=== PATIENT | female | born 1975 | race Caucasian/White ===

== ENCOUNTER → 2019-04-07 17:58 | Outpatient (CLI) | payer OTHER, SELFPAY ==
--- NOTE | ~2019-04-07 | MM_ITS ---
EXAMINATION: MM screening willy BI w ric HISTORY: Screening mammogram TECHNIQUE: Craniocaudal and mediolateral oblique 3-D tomosynthesis images were obtained and synthetic 2-D images were generated. CAD analysis was submitted and interpreted. COMPARISON: Comparison to multiple prior studies sequentially, with oldest reviewed study dated 11/06. BREAST PARENCHYMAL COMPOSITION: The breasts are heterogeneously dense, which may obscure small masses . FINDINGS: There is no evidence of suspicious mass, calcification, or architectural distortion to sugg est malignancy in either breast. There has been no suspicious interval change. IMPRESSION: 1. No mammographic evidence of malignancy. 2. Recommend routine screening mammography in one year. BI-RADS Category 1: Negative Reviewed, dictated and finalized at location A. [facility]
== END ==
DX: Z12.31 Encounter for screening mammogram for malignant neoplasm of breast (principal)
CPT/HCPCS: 77063; 77067

== ENCOUNTER 2020-05-31 17:02 | Outpatient (CLI) | payer OTHER, SELFPAY ==
--- NOTE | ~2020-05-31 | MM_ITS ---
EXAMINATION: MM screening willy BI w ric HISTORY: Screening TECHNIQUE: Craniocaudal and mediolateral oblique 3-D tomosynthesis images were obtained and synthetic 2-D images were generated. CAD analysis was submitted and interpreted. COMPARISON: Comparison to multiple prior studies sequentially, with oldest reviewed study dated 11/06. BREAST PARENCHYMAL COMPOSITION: The breasts are heterogeneously dense, which may obscure small masses . FINDINGS: There is no evidence of suspicious mass, calcification, or architectural distortion to sugg est malignancy in either breast. There has been no suspicious interval change. IMPRESSION: 1. No mammographic evidence of malignancy. 2. Recommend routine screening mammography in one year. BI-RADS Category 1: Negative Reviewed, dictated and finalized at location A.
== END 2020-05-31 17:03 | disposition home or self-care (01) ==
LOC: ANHIMG 17:09
PROVIDERS: PCP Internal Medicine
DX: Z12.31 Encounter for screening mammogram for malignant neoplasm of breast (principal)
CPT/HCPCS: 77063; 77067

== ENCOUNTER → 2021-06-02 17:53 | Outpatient (CLI) | payer BC, SELFPAY ==
--- NOTE | ~2021-06-02 | MM_ITS ---
EXAMINATION: MM screening willy BI w ric HISTORY: Screening TECHNIQUE: Craniocaudal and mediolateral oblique 3-D tomosynthesis images were obtained and synthetic 2-D images were generated. CAD analysis was submitted and interpreted. COMPARISON: Comparison to multiple prior studies sequentially, with oldest reviewed study dated 11/06. BREAST PARENCHYMAL COMPOSITION: The breasts are heterogeneously dense, which may obscure small masses . FINDINGS: There is no evidence of suspicious mass, calcification, or architectural distortion to sugg est malignancy in either breast. There has been no suspicious interval change. IMPRESSION: 1. No mammographic evidence of malignancy. 2. Recommend routine screening mammography in one year. BI-RADS Category 1: Negative Reviewed, dictated and finalized at location A.
== END ==
DX: Z12.31 Encounter for screening mammogram for malignant neoplasm of breast (principal)
CPT/HCPCS: 77063; 77067

== ENCOUNTER 2022-05-20 21:24 | Emergency (ER) | payer BC, SELFPAY ==
--- NOTE | ~2022-05-20 | XR_ITS ---
Clinical Indication: Chest pressure PA and lateral views of the chest: Comparison: 03/05/2017 Findings: The lungs are clear, without evidence of focal consolidation or pleural effusion. Oh mild p rominence of the central pulmonary arterial structures. Cardiac silhouette unremarkable. Bones and so ft tissues are unremarkable. Impression: Somewhat prominent central pulmonary arterial structures. Correlate for pulmonary artery hypertension . Clear lungs. Reviewed, dictated and finalized at location . Impression: Somewhat prominent central pulmonary arterial structures. Correlate for pulmona ry artery hypertension. Clear lungs.
--- NOTE | 2022-05-20 21:25 | ECG_ITS ---
Measurements Intervals [place] Rate: 67 P: 65 MA: 171 QRS: 65 QRSD: 81 T: 57 QT: 388 QTc: 411 Interpretive Statements SINUS RHYTHM NORMAL ECG NO PREVIOUS ECG AVAILABLE FOR COMPARISON Electronically Signed On 05-21-2022 16:54:12 CDT by Gonzalo Smith M.D.
[2022-05-20 21:27] VITALS: BP 146/85; PULSE 72; RESP 15; TEMP 36.6; O2SAT 100
[2022-05-20 21:51] VITALS: PULSE 66
[2022-05-20 21:55] LABS: Basophils Absolute Auto 0.1 K/mm3 (0.0-0.1); Basophils Percent Auto 1.3 % (0.2-1.2); Eosinophils Absolute Auto 0.2 K/mm3 (0-0.3); Eosinophils Percent Auto 3.4 % (0-4.4); Hematocrit 36.2 % (37.0-47.0); Hemoglobin 12.2 g/dL (12.0-15.0); Immature Granulocyte Absolute 0.01 K/mm3 (0.00-0.031); Immature Granulocyte Percent A 0.2 % (0-0.5); Lymphocytes Absolute Auto 2.91 K/mm3 (0.9-3.2); Lymphocytes Percent Auto 48.8 % (18.3-44.2); Mean Corpuscular HGB Conc 33.7 g/dl (32-36); Mean Corpuscular Hemoglobin 30.9 pg (26-34); Mean Corpuscular Volume 91.6 fl (80-100); Mean Platelet Volume 9.5 fl (7.4-10.4); Monocytes Absolute Auto 0.8 K/mm3 (0.1-0.6); Monocytes Percent Auto 12.6 % (2.6-8.5); Neutrophils Percent Auto 33.7 % (45.5-73.1); Platelet Count Result 262 k/mm3 (150-375); Red Blood Count 3.95 M/mm3 (4.2-5.4); Red Cell Distribution Width 12.5 % (11.5-14.5)
[2022-05-20 22:06] LABS: Alanine Aminotransferase 23 U/L (6-35); Albumin Level 4.3 g/dL (3.5-5.1); Alkaline Phosphatase 62 U/L (38-126); Anion Gap 8 mmol/L (8-16); Aspartate Amino Transferase 30 U/L (14-36); Bilirubin,Total 0.5 mg/dL (0.2-1.3); Blood Urea Nitrogen 25 mg/dL (7-17); Calcium 9.4 mg/dL (8.4-10.2); Carbon Dioxide 28 mmol/L (22-30); Chloride 100 mmol/L (98-107); Estimated CRCL calculation 63 ml/min; Estimated Glomerular Filt Rate > 60; Glucose 102 mg/dL (65-110); Lipase 213 U/L (23-300); Potassium 3.9 mmol/L (3.4-5.0); Prothrombin Time 12.9 Seconds (11.1-14.7); Sodium 136 mmol/L (137-145)
--- NOTE | 2022-05-20 22:13 | ED.CHESTPAIN ---
HPI - Chest Pain General Chief Complaint: Chest Pain <Jada Latham PA-C - Last Filed: 05/20/22 23:22> Stated Complaint: chest pressure <Jada Latham PA-C - Last Filed: 05/20/22 23:22> Time Seen by Provider: 05/20/22 21:44 <Jada Latham PA-C - Last Filed: 05/20/22 23:22> History of Present Illness HPI narrative: 47 y/o F reports with history of hyperlipidemia reports for evaluation of left anterior chest tightness intermittently for 5 days. Patient reports the chest tightness comes on while she is laying down, lasts approximately 1 hour, and occurs multiple times a day. The pain does not radiate anywhere. Reports she has been very active and has gone to multiple runs since the symptoms started without exacerbation of pain. Patient denies cardiac history other than being told at one point that she needs to take antibiotics prior to going to the dentist, however she is unsure why. She is not followed by merchant patroller, however she is scheduled to see a merchant patroller in 3 months. She denies dyspnea, headaches, vision changes, focal numbness or weakness, syncope, dizziness, lower extremity edema, leg pain, palpitations cough, congestion, fever, body aches, chills. Reports she has felt lightheaded today. Denies history of VTE, recent hospitalizations or surgeries, history of cancer. She is currently taking oral contraceptives. <Jada Latham PA-C - Last Filed: 05/20/22 23:22> Related Data Home Medications: Home Medications Medication Instructions Recorded Confirmed drospirenone 3 mg-ethinyl 1 tablet PO DAILY 01/22/19 03/14/22 estradiol 0.03 mg tablet (Rosie (28)) valacyclovir 500 mg tablet 500 mg PO BID PRN Cold Sores 01/22/19 03/14/22 (Valtrex) cyclosporine 0.05 % eye drops 1 drop ophthalmic (eye) Q12H 03/24/19 03/14/22 (Restasis MultiDose) <Jada Latham PA-C - Last Filed: 05/20/22 23:22> Allergies/Adverse Reactions: Allergies Allergy/AdvReac Type Severity Reaction Status Date / Time No Known Allergies Allergy Mild Verified 05/20/22 21:25 <Jada Latham PA-C - Last Filed: 05/20/22 23:22> Review of Systems Review of Systems: CONSTITUTIONAL: Denies fever, chills EYES: Denies visual changes, redness, or discharge. ENT: Denies rhinorrhea, congestion, sore throat, or otalgia. CARDIOVASCULAR: See HPI RESPIRATORY: Denies cough or dyspnea. GASTROINTESTINAL: Denies abdominal pain, nausea, vomiting, or diarrhea. GENITOURINARY: Denies dysuria or hematuria. SKIN: Denies rash or itching. MUSCULOSKELETAL: Denies joint pain, or myalgia. NEUROLOGIC: Denies headache, numbness, dizziness, or weakness. PSYCHIATRIC: Denies anxiety or depression. <Jada Latham PA-C - Last Filed: 05/20/22 23:22> PMFSH Past Medical History Medical History: Medical History (Updated 05/21/22 @ 00:08 by Vladislav Brunner) Globus sensation <Jada Latham PA-C - Last Filed: 05/20/22 23:22> Family History Family History: Family History Mother Patient's mother is in good health Father Patient's father is in good health <Jada Latham PA-C - Last Filed: 05/20/22 23:22> Social History Social History: Social History Smoking status: Never smoker Second hand tobacco smoke exposure: No Alcohol intake: current Lack of Transportation: No Lack of Food: Never True Current Housing: I Have Housing Concerned About Future Housing: No Difficulty Paying Gas/Electric Bills: No Difficulty Paying for Meds: No Currently Unemployed: No Education: Bachelor's Degree Difficulty w/ Childcare or Family Care: No <Jada Latham PA-C - Last Filed: 05/20/22 23:22> Exam Narrative: GENERAL: Well-appearing, well-nourished, and in no acute distress. Patient resting comfortably in the exam bed. She is pleasant and conversationa
[2022-05-20 22:18] LABS: Troponin I < 0.012 ng/mL (0.000-0.034)
[2022-05-20] MEDS: ASPIRIN 81 MG CHEWABLE TABLET 324 MG PO (22:48)
[2022-05-20 22:50] VITALS: BP 116/77; PULSE 71; RESP 14; O2SAT 100
== END 2022-05-20 23:32 | disposition home or self-care (01) ==
PROVIDERS: Emergency Medicine; Emergency Provider Physician Assistant; PCP Internal Medicine
DX: R07.9 Chest pain, unspecified (principal)
CPT/HCPCS: 36415; 71046; 80053; 83690; 84484; 85025; 85610; 85730; 93005; 99284; A9270

== ENCOUNTER → 2022-07-12 16:57 | Outpatient (CLI) | payer BC, SELFPAY ==
--- NOTE | ~2022-07-12 | MM_ITS ---
EXAMINATION: MM screening willy BI w ric HISTORY: Screening mammogram TECHNIQUE: Craniocaudal and mediolateral oblique 3-D tomosynthesis images were obtained and synthetic 2-D images were generated. Bilateral rotated lateral CC views. CAD analysis was submitted and interp reted. COMPARISON: June 02, 2021, May 31, 2020, April 07, 2019 bilateral screening mammogram examinati ons BREAST PARENCHYMAL COMPOSITION: The breasts are heterogeneously dense, which may obscure small masses . FINDINGS: There is no evidence of suspicious mass, calcification, or architectural distortion to sugg est malignancy in either breast. There has been no suspicious interval change. IMPRESSION: 1. No mammographic evidence of malignancy. 2. Recommend routine screening mammography in one year. BI-RADS Category 1: Negative Reviewed, dictated and finalized at location A.
== END ==
PROVIDERS: PCP Internal Medicine
DX: Z12.31 Encounter for screening mammogram for malignant neoplasm of breast (principal)
CPT/HCPCS: 77063; 77067

== ENCOUNTER 2022-10-03 01:29 | Day surgery (SDC) | payer BC, SELFPAY ==
[2022-09-20 10:52] VITALS: BMI 25.0
--- NOTE | 2022-10-02 14:09 | WPDANESEPPF ---
Anes - Initial Pre Proc Eval Procedure: Operation Date: 10/03/22 10:45 Proposed Procedures p Screening Colonoscopy - Emile Mustafa MD Date/Time: 10/02/22 14:09 Surgeon: Emile Mustafa MD Pre Op Diagnosis: neoplasm screening Patient Data Age: 47 Gender: F Height: 1.55 m Weight: 60 kg Allergies Allergy/AdvReac Type Severity Reaction Status Date / Time No Known Allergies Allergy Mild Verified 10/03/22 09:33 Home Medications Medication Instructions Recorded Confirmed Type drospirenone 3 mg-ethinyl 1 tablet PO DAILY 01/22/19 10/03/22 History estradiol 0.03 mg tablet (Rosie (28)) valacyclovir 500 mg tablet 500 mg PO BID PRN Cold Sores 01/22/19 10/03/22 History (Valtrex) cyclosporine 0.05 % eye drops 1 drop ophthalmic (eye) Q12H 03/24/19 10/03/22 History (Restasis MultiDose) omega-3 acid ethyl esters 1 gram 1 cap PO DAILY #90 caps 06/18/22 10/03/22 Rx capsule (Lovaza) fenofibrate nanocrystallized 145 145 mg PO DAILY #90 tabs 06/26/22 10/03/22 Rx mg tablet Patient hx anesthesia problems: none Family hx anesthesia problems: none Results Review: All pre-operative results and documents have been reviewed as part of the pre-operative evaluation. [facility] Past Medical History Medical History (Updated 10/03/22 @ 10:25 by Emile Mustafa MD) Colon cancer screening Globus sensation Other hyperlipidemia Family History Family History Mother Patient's mother is in good health Father Patient's father is in good health Social History Social History Smoking status: Never smoker Second hand tobacco smoke exposure: No Alcohol intake: current Alcohol use details: socially Substance use: never Substance use type: does not use Lack of Transportation: No Lack of Food: Never True Current Housing: I Have Housing Concerned About Future Housing: No Difficulty Paying Gas/Electric Bills: No Difficulty Paying for Meds: No Currently Unemployed: No Education: Bachelor's Degree Difficulty w/ Childcare or Family Care: No Living arrangements: with family Spiritual care concerns: No Anes - Eval Final PreProcedure Day of Procedure 10/02/22 14:09 Patient weight: normal Heart: regular rate and rhythm Lungs: clear to auscultation and normal air movement Airway: Mallampati scale class II Neurological: alert and oriented Last oral intake: >/= 8 hours ASA classification: II Emergent: no Anesthetic plan: proceed Anesthesia type and monitoring: general GIVS and standard monitoring Results Review: All pre-operative results and documents have been reviewed as part of the pre-operative evaluation. Informed Consent: The patient's anesthetic plan and its attendant risks and benefits were discussed with the patient/family/POA. Questions were solicited and answers provided to the satisfaction of the patient/family/POA.
[2022-10-03 09:46] VITALS: BP 132/76; PULSE 65; RESP 16; TEMP 36.1; O2SAT 100; BMI 25.6
[2022-10-03] MEDS: LACTATED RINGERS 1,000 ML 150 ML IV CONT (09:56)
--- NOTE | 2022-10-03 10:24 | PM.HPGS ---
History of Present Illness History of Present Illness Consent: Risks, benefits, and alternatives have been discussed and questions answered. Patient agrees to proceed with procedure. Chief complaint: neoplasm screening Narrative: Kailey Fabian is a 47 year old female here for first screening colonoscopy Review of Systems Constitutional: Constitutional: Denies headache(s) and Denies weakness Eyes: Eyes: Denies blurry vision ENT: Reports Normal hearing present, Denies headache(s) and Denies neck pain Cardiovascular: Cardiovascular: Denies chest pain and Denies dyspnea Respiratory: Respiratory: Denies dyspnea Gastrointestinal: Gastrointestinal: Reports no additional gastrointestinal complaints Genitourinary: Genitourinary: Denies dysuria Musculoskeletal: Musculoskeletal: Denies neck pain Integumentary/Breasts: Skin/Breast: Denies dry skin Neurologic: Reports Normal hearing present, Denies headache(s) and Denies weakness Psychiatric: Psychiatric: Denies anxiety Endocrine: Endocrine: Denies change in body appearance Hematologic/Lymphatic: Hematologic/Lymphatic: Denies easy bleeding Allergic/Immunologic: Allergic/Immunologic: Denies urticaria PMFSH Past Medical History Medical History (Updated 10/03/22 @ 10:25 by Emile Mustafa MD) Colon cancer screening Globus sensation Other hyperlipidemia Family History Family History Mother Patient's mother is in good health Father Patient's father is in good health Social History Social History Smoking status: Never smoker Second hand tobacco smoke exposure: No Alcohol intake: current Alcohol use details: socially Substance use: never Substance use type: does not use Lack of Transportation: No Lack of Food: Never True Current Housing: I Have Housing Concerned About Future Housing: No Difficulty Paying Gas/Electric Bills: No Difficulty Paying for Meds: No Currently Unemployed: No Education: Bachelor's Degree Difficulty w/ Childcare or Family Care: No Living arrangements: with family Spiritual care concerns: No Meds Home Medications and Allergies Home Medications Medication Instructions Recorded Confirmed Type drospirenone 3 mg-ethinyl 1 tablet PO DAILY 01/22/19 10/03/22 History estradiol 0.03 mg tablet (Rosie (28)) valacyclovir 500 mg tablet 500 mg PO BID PRN Cold Sores 12/12/19 08/23/23 History (Valtrex) cyclosporine 0.05 % eye drops 1 drop ophthalmic (eye) Q12H 03/24/19 10/03/22 History (Restasis MultiDose) omega-3 acid ethyl esters 1 gram 1 cap PO DAILY #90 caps 06/18/22 10/03/22 Rx capsule (Lovaza) fenofibrate nanocrystallized 145 145 mg PO DAILY #90 tabs 06/26/22 10/03/22 Rx mg tablet Allergies Allergy/AdvReac Type Severity Reaction Status Date / Time No Known Allergies Allergy Mild Verified 10/03/22 09:33 Vital Signs Vital Signs - 24 hr 10/03/22 09:46 Temperature 97 F L Pulse Rate 65 Respiratory Rate 16 Blood Pressure 132/76 Pulse Oximetry 100 Oxygen Delivery Room Air Exam Const: General: comfortable and no acute distress HENMT: Face/Nose/Sinus: Normal nares present Eyes: General: appearance normal, both eyes and all related structures Neck: Neck: no JVD Resp: Auscultation: clear to auscultation bilaterally Cardio: Rate: regular rate Rhythm: regular rhythm GI: Inspection: non-distended GI Palp: Yes Soft to palpation Skin: General skin exam: normal color Neuro: General: gait normal Speech: normal speech Extrem: General: normal to inspection Psych: Mental Status: mental status grossly normal Assessment and Plan Assessment and plan (1) Colon cancer screening: Code(s): Z12.11 - Encounter for screening for malignant neoplasm of colon Status: Acute Assessment and Plan: colonoscop
[2022-10-03 10:47] VITALS: BP 80/53; PULSE 65; RESP 20; O2SAT 100
[2022-10-03 10:57] VITALS: BP 99/66; PULSE 57; RESP 22; O2SAT 100
[2022-10-03 11:07] VITALS: BP 119/81; PULSE 55; RESP 22; O2SAT 100
== END 2022-10-03 11:19 | disposition home or self-care (01) ==
PROVIDERS: PCP Internal Medicine; Visit Provider Internal Medicine Gastroenterology
PROC: 0DJD8ZZ Inspection of Lower Intestinal Tract, Via Natural or Artificial Opening Endoscopic (ICD-10-PCS; CPT 45378; principal; 2022-10-03 10:45)
DX: Z12.11 Encounter for screening for malignant neoplasm of colon (principal); E78.49 Other hyperlipidemia
CPT/HCPCS: 45378; J2704; J7120

== ENCOUNTER 2023-06-24 15:56 | Outpatient (CLI) | payer BC, SELFPAY ==
--- NOTE | ~2023-06-24 | US_ITS ---
EXAMINATION: US thyroid DATE: 06/24/2023 16:17 INDICATION: Nontoxic single thyroid nodule. TECHNIQUE: Multiple ultrasound images of the thyroid were obtained. COMPARISON: None. FINDINGS: The right thyroid lobe measures 4.8 x 1.4 x 1.4 cm. The left thyroid lobe measures 5.1 x 1.8 x 1.6 c m. In the left thyroid lobe, there is a 6 mm mixed cystic and solid, isoechoic, wider than tall nodu le with smooth margin without echogenic foci (TI-RADS TR2). In the left thyroid lobe, there is a 8 mm solid, hypoechoic, wider than tall nodule with smooth margins without echogenic foci (TR4). IMPRESSION: 1. Small thyroid nodules, likely not clinically significant. No follow-up is needed. Reviewed, dictated and finalized at location A. IMPRESSION: 1. Small thyroid nodules, likely not clinically significant. No follow-up is ne eded.
== END 2023-06-24 15:57 ==
PROVIDERS: PCP Physician Assistant; Visit Provider Physician Assistant
DX: E04.2 Nontoxic multinodular goiter (principal)
CPT/HCPCS: 76536

== ENCOUNTER 2023-09-16 13:48 | Outpatient (CLI) | payer BC, SELFPAY ==
--- NOTE | ~2023-09-16 | MM_ITS ---
EXAMINATION: MM screening willy BI w ric HISTORY: Screening TECHNIQUE: Craniocaudal and mediolateral oblique 3-D tomosynthesis images were obtained and synthetic 2-D images were generated. CAD analysis was submitted and interpreted. COMPARISON: Comparison to multiple prior studies sequentially, with oldest reviewed study dated 02/26. BREAST PARENCHYMAL COMPOSITION: Dense: The breasts are heterogeneously dense, which may obscure small masses FINDINGS: There is no evidence of suspicious mass, calcification, or architectural distortion to sugg est malignancy in either breast. There has been no suspicious interval change. IMPRESSION: 1. No mammographic evidence of malignancy. 2. Recommend routine screening mammography in one year. BI-RADS Category 1: Negative Reviewed, dictated and finalized at location B.
== END 2023-09-16 13:49 ==
DX: Z12.31 Encounter for screening mammogram for malignant neoplasm of breast (principal)
CPT/HCPCS: 77063; 77067

== ENCOUNTER 2023-12-09 16:01 | Emergency (ER) | payer BC, SELFPAY ==
[2023-12-09 16:12] VITALS: BP 119/66; PULSE 65; RESP 15; TEMP 36.2; O2SAT 100
--- NOTE | 2023-12-09 16:19 | ED_ITS ---
HPI - URI/Sore Throat General Chief Complaint: Upper Respiratory Infection Stated Complaint: Sinus Infection Symptoms Time Seen by Provider: 12/09/23 16:19 Source: patient Mode of arrival: ambulatory Limitations: no limitations History of Present Illness HPI Narrative: 48-year-old female presents with complaint of nasal congestion for 5 days. Hoarse voice for 3 days. Started coughing today. Cough is nonproductive. Afebrile. No chest pain or shortness of breath. Patient taking 1 Sudafed today and taking an maut-dul-tmanaug cough medicine to treat symptoms. All systems reviewed and negative except as noted above. Related Data Home Medications Medication Instructions Recorded Confirmed drospirenone 3 mg-ethinyl 1 tablet PO DAILY 01/22/19 12/09/23 estradiol 0.03 mg tablet (Rosie (28)) valacyclovir 500 mg tablet 500 mg PO BID PRN Cold Sores 01/22/19 12/09/23 (Valtrex) cyclosporine 0.05 % eye drops 1 drop ophthalmic (eye) Q12H 03/24/19 12/09/23 (Restasis MultiDose) Allergies Allergy/AdvReac Type Severity Reaction Status Date / Time No Known Allergies Allergy Mild Verified 12/09/23 16:18 Review of Systems Review of Systems: CONSTITUTIONAL: Denies fever, chills, or sweats. EYES: Denies visual changes, redness, or discharge. ENT: Reports rhinorrhea, congestion, hoarse voice, sore throat. Denies otalgia. CARDIOVASCULAR: Denies chest pain, palpitations, or edema. RESPIRATORY: Reports cough. Denies dyspnea. GASTROINTESTINAL: Denies abdominal pain, nausea, vomiting, or diarrhea. GENITOURINARY: Denies dysuria or hematuria. SKIN: Denies rash or itching. MUSCULOSKELETAL: Denies back pain, joint pain, or myalgia. NEUROLOGIC: Denies headache, numbness, or weakness. PSYCHIATRIC: Denies anxiety or depression. All other systems reviewed are negative, except as documented in HPI. [facility] Past Medical History Medical History Colon cancer screening Globus sensation Other hyperlipidemia Family History Family History Mother Patient's mother is in good health Father Patient's father is in good health Social History Social History Smoking status: Never smoker Second hand tobacco smoke exposure: No Alcohol intake: current Alcohol use details: socially Substance use: never Substance use type: does not use Lack of Transportation: No Lack of Food: Never True Current Housing: I Have Housing Concerned About Future Housing: No Difficulty Paying Gas/Electric Bills: No Difficulty Paying for Meds: No Currently Unemployed: No Education: Bachelor's Degree Difficulty w/ Childcare or Family Care: No Living arrangements: with family Spiritual care concerns: No Comments At time of signature, agree with nursing past medical, surgical, social and family history. There is no relevant family history pertinent to the presenting complaint. Exam Narrative: GENERAL: This is a well-nourished, well-developed patient, patient ill-appearing but in no acute distress HEAD: normocephalic, atraumatic. EYES: PERRL. Sclera clear/white. Vision is grossly intact. EARS: External ears normal, auditory canals clear and without drainage, TMs normal without perforation. Hearing grossly intact. NOSE: External nose normal with clear nasal drainage mild congestion THROAT: Mucous membranes moist, mild erythema, clear postnasal drainage, hoarse voice NECK: Neck supple, non-tender without lymphadenopathy, masses or thyromegaly. CARDIOVASCULAR: Regular rate and rhythm without murmurs, gallops, or rubs. RESPIRATORY: Clear to auscultation. Breath sounds equal bilaterally. No wheezes, rales, or rhonchi. SKIN: warm, Dry, intact with no suspicious lesions or rash, good texture and turgor. NEURO: awake, alert, and oriented to person, place and time. There were no obvious focal neurologic abnormalities. EXTREMITIES: No joint tenderness, effusion, or edema noted. Course Course Level of Care: Express Care Visit Vital Signs Vital signs: Vital Signs Temperature 36.2 C L 12/09/23 16:12 Pulse Rate 65 12/09/23 16:12 Respiratory Rate 15 12/09/23 16:12 Blood Pressure 119/66 12/09/23 16:12 Pulse Oximetry 100 12/09/23 16:12 Oxygen Delivery Room Air 12/09/23 16:12 Temperature 36.2 C L 12/09/23 16:12 Pulse Rate 65 12/09/23 16:12 Respiratory Rate 15 12/09/23 16:12 Blood Pressure 119/66 12/09/23 16:12 Pulse Oximetry 100 12/09/23 16:12 Oxygen Delivery Room Air 12/09/23 16:12 Reviewed MDM - URI/Sore Throat MDM Narrative Medical decision making narrative: Lungs clear to auscultation. Recommend patient continue treatment with over-the -counter medications. Patient is aware of diagnosis, understands and agrees to treatment plan. Anticipatory guidance given. Patient agrees to follow-up as directed and is aware of reasons to seek care at the emergency department. Portions of this record may have been created with voice recognition software Differential Diagnosis Differential diagnosis: Likely upper respiratory infection, sinusitis, viral infection, bronchitis and pharyngitis Discharge Plan Discharge Clinical Impression: Laryngitis, acute, Viral upper respiratory tract infection with cough Patient Disposition: Home, Self-Care Condition: Stable Instructions: Laringitis (ED) Additional Instructions: Your symptoms are viral and may last 10-14 days. Your lungs were clear today. Taking ifal-gvo-[id number] medication to treat her symptoms such as DayQuil NyQuil cold and flu. Drink at least 64 oz of water a day. Place cool mist humidifier in bedroom where you sleep. Drink hot tea with honey to soothe throat and treat cough. Follow-up your primary care physician if symptoms are not improving. Prescriptions: No Action Restasis MultiDose 0.05 % drops 1 drop EACH EYE Q12H drospirenone-ethinyl estradiol [Rosie (28)] 3-0.03 mg tablet 1 tablet PO DAILY valacyclovir [Valtrex] 500 mg tablet 500 mg PO BID PRN (Reason: Cold Sores) fenofibrate nanocrystallized 145 mg tablet 145 mg PO DAILY Qty: 90 2RF omega-3 acid ethyl esters [Lovaza] 1 gram capsule 1 cap PO DAILY Qty: 90 1RF Follow-up/Referrals: PHYSICIAN,FITNESS/WELLNESS DIRECTOR [Primary Care Provider] - Time of Disposition: 16:31
== END 2023-12-09 16:32 | disposition home or self-care (01) ==
PROVIDERS: Emergency Provider Nurse Practitioner Family
DX: J04.0 Acute laryngitis (principal); J06.9 Acute upper respiratory infection, unspecified; R05.9 Cough, unspecified; E78.49 Other hyperlipidemia
CPT/HCPCS: 99211; G0463

== ENCOUNTER 2024-11-13 08:51 | Outpatient (CLI) | payer BC, SELFPAY ==
--- NOTE | ~2024-11-13 | MM_ITS ---
EXAMINATION: MM screening willy BI w ric HISTORY: Screening TECHNIQUE: Craniocaudal and mediolateral oblique 3-D tomosynthesis images were obtained and synthetic 2-D images were generated. CAD analysis was submitted and interpreted. COMPARISON: Comparison to multiple prior studies sequentially, with oldest reviewed study dated 03/24/2018. BREAST PARENCHYMAL COMPOSITION: Dense: The breasts are heterogeneously dense, which may obscure small masses FINDINGS: There is no evidence of suspicious mass, calcification, or architectural distortion to suggest malignancy in either breast. There has been no suspicious interval change. IMPRESSION: 1. No mammographic evidence of malignancy. 2. Recommend routine screening mammography in one year. BI-RADS Category 1: Negative Reviewed, dictated and finalized at location C.
== END 2024-11-13 08:52 | disposition home or self-care (01) ==
LOC: MICIMG 08:52
PROVIDERS: PCP Internal Medicine
DX: Z12.31 Encounter for screening mammogram for malignant neoplasm of breast (principal)
CPT/HCPCS: 77063; 77067